=== PATIENT | female | born 1955 | race Caucasian/White ===

== ENCOUNTER 2024-06-11 10:11 | Day surgery (SDC) | payer MEDICARE, BC ==
[~2024-06-11] VITALS: Ht 177.8 cm; Wt 69.8 kg
[2024-06-11] MEDS ORDERED: fentaNYL/PF 50MCG/1 ML 2ML syringe IV ONE (10:40)
[2024-06-11] MEDS ORDERED: MIDAZolam 1mg/ml 10ml vial IV ONE (10:40)
[2024-06-11] MEDS ORDERED: normal saline 1000ml 1,000 ML IV SCH (10:40)
[2024-06-11] MEDS ORDERED: FAMO40TA58 PO (10:44)
[2024-06-11] MEDS ORDERED: ASPI-147 PO (10:44)
[2024-06-11] MEDS ORDERED: METO-395 PO (10:44)
[2024-06-11] MEDS ORDERED: FURO40TA4 PO (10:44)
[2024-06-11] MEDS ORDERED: IBUP200C5 PO (10:44)
[2024-06-11] MEDS ORDERED: [UNRECOGNIZED DRUG - CODE] PO (10:44)
[2024-06-11] MEDS ORDERED: AMI200T PO (10:44)
[2024-06-11] MEDS ORDERED: FAMO-289 (10:44)
[2024-06-11] MEDS ORDERED: SPIR25TA5 PO (10:44)
[2024-06-11] MEDS ORDERED: APIX5TAB3 PO (10:44)
[2024-06-11] MEDS ORDERED: LEVO50TA8 PO (10:44)
[2024-06-11] MEDS ORDERED: PSEU-303 PO (10:44)
[2024-06-11] MEDS ORDERED: OMEP40CA21 PO (10:44)
[2024-06-11] MEDS ORDERED: PER5325T PO (10:44)
[2024-06-11 11:28] VITALS: RESP 15; O2SAT 95
[2024-06-11] MEDS ORDERED: midazolam 1 mg/ML 2ml injection ONE ×3 (12:03→12:37)
[2024-06-11] MEDS ORDERED: fentaNYL/PF 50MCG/1 ML 2ML syringe ONE (12:03)
[2024-06-11 12:56] VITALS: BP 111/81; PULSE 131; RESP 15; O2SAT 96
[2024-06-11 13:11] VITALS: BP 97/53; PULSE 128; RESP 14; O2SAT 95
[2024-06-11 13:23] VITALS: BP 97/55; PULSE 125; RESP 13; O2SAT 96
[2024-06-11 13:34] VITALS: BP 100/67; PULSE 121; RESP 12; O2SAT 97
== END 2024-06-11 14:55 | disposition home or self-care (01) ==
LOC: SSTAY O 10:11
PROVIDERS: ATTEND Internal Medicine Interventional Cardiology
DX: I48.0 Paroxysmal atrial fibrillation (principal); I13.0 Hypertensive heart and chronic kidney disease with heart failure and stage 1 through stage 4 chronic kidney disease, or unspecified chronic kidney disease; N18.9 Chronic kidney disease, unspecified; I50.9 Heart failure, unspecified; E03.9 Hypothyroidism, unspecified; E78.5 Hyperlipidemia, unspecified; K21.9 Gastro-esophageal reflux disease without esophagitis; J44.9 Chronic obstructive pulmonary disease, unspecified; M81.0 Age-related osteoporosis without current pathological fracture; I42.9 Cardiomyopathy, unspecified; M19.90 Unspecified osteoarthritis, unspecified site; Z79.01 Long term (current) use of anticoagulants; Z79.890 Hormone replacement therapy; Z79.891 Long term (current) use of opiate analgesic; Z79.899 Other long term (current) drug therapy; Z88.2 Allergy status to sulfonamides; Z88.8 Allergy status to other drugs, medicaments and biological substances
CPT/HCPCS: 92960; J2250; J3010; J7030; 99152